=== PATIENT | male | born 1955 | race Hispanic/Latino ===

== ENCOUNTER → 2018-02-23 | Outpatient (CLI) | payer MEDICAID ==
[~2018-02-23] MED LIST: ATORVASTATIN; GABA-529 PO; GLIP5TAB11 PO; LISI-613 PO; METF-446 PO; WARF10TA45 PO
== END | disposition home or self-care (01) ==
LOC: RAH 08:39
PROVIDERS: ATTEND Internal Medicine Gastroenterology
DX: N28.1 Cyst of kidney, acquired (principal); K80.20 Calculus of gallbladder without cholecystitis without obstruction; R16.0 Hepatomegaly, not elsewhere classified
CPT/HCPCS: 76700